=== PATIENT | female | born 1985 | race African-American/Black ===

== ENCOUNTER 2021-01-11 11:56 | Emergency (ER) | payer SELFPAY ==
[~2021-01-11] VITALS: Ht 167.6 cm; Wt 64.0 kg
[2021-01-11 12:54] VITALS: BP 119/85
== END 2021-01-11 15:15 | disposition left against medical advice (07) ==
LOC: ER 11:56
DX: Z53.21 Procedure and treatment not carried out due to patient leaving prior to being seen by health care provider (principal)

== ENCOUNTER 2025-04-02 22:06 | Emergency (ER) | payer SELFPAY ==
[~2025-04-02] VITALS: Ht 160 cm; Wt 58.0 kg
[2025-04-02 22:19] VITALS: O2SAT 98
[2025-04-02] MEDS: DIPHENHYDRAMINE 25MG CAPSULE PO ONE (23:15)
[2025-04-02] MEDS ORDERED: DEXAMETHASONE 1 MG/ML ORAL SYR PO ONE (23:15)
[2025-04-02] MEDS ORDERED: HYDR-459 MT (23:22)
[2025-04-02] MEDS ORDERED: DIPH25TA26 MT (23:22)
[2025-04-02] MEDS ORDERED: P20 MT (23:22)
[2025-04-02] MEDS: DEXAMETHASONE 4MG TABLET PO NR (23:51)
[2025-04-03 00:04] VITALS: BP 130/76; PULSE 80; RESP 18; O2SAT 100
== END 2025-04-03 00:05 | disposition home or self-care (01) ==
LOC: ER 22:06
DX: R21 Rash and other nonspecific skin eruption (principal); F41.9 Anxiety disorder, unspecified; Z79.52 Long term (current) use of systemic steroids
CPT/HCPCS: 99283; J8540